=== PATIENT | male | born 1975 | race Caucasian/White ===

== ENCOUNTER 2019-08-11 15:56 | Outpatient (CLI) | payer OTHER, SELFPAY ==
--- NOTE | 2019-08-11 | XR_ITS ---
WS: [id number] ABDOMEN SERIES Supine and upright views of the abdomen CLINICAL INFORMATION: ABDOMINAL BLOATING COMPARISON: None. FINDINGS: No free air on the upright view. Scattered stool in the colon. No bowel distention. No evidence of h igh-grade obstruction. A few air-fluid levels in colon on the upright view. No significant bowel dist ention. XR/XR abdomen min 2V [id number] IMPRESSION: Normal abdomen
== END 2019-08-11 15:57 | disposition home or self-care (01) ==
PROVIDERS: Family Provider Family Medicine; Visit Provider Family Medicine
DX: Z76.89 Persons encountering health services in other specified circumstances (principal)

== ENCOUNTER 2021-04-15 18:47 | Emergency (ER) | payer OTHER, SELFPAY ==
[2021-04-15 18:50] VITALS: BP 145/89; PULSE 78; RESP 18; TEMP 36.5; O2SAT 99; BMI 30.7
--- NOTE | 2021-04-15 19:05 | ED_ITS ---
HPI - Chest Pain General: Chief Complaint: Chest Pain Stated Complaint: cp Time Seen by Provider: 04/15/21 19:05 History of Present Illness: HPI narrative: Mr. Gardner is a 46-year-old gentleman without significant past medical history presents emergency department due to chest pain. He reports that symptoms started approximately 1 day ago and initially had upper respiratory infection symptoms with congestion, mild sore throat, and generalized malaise. No fevers, chills, or other focal source of infection. Today, about 1 hour prior to arrival he had tightness across his chest and felt lightheaded. Tightness did not significantly radiate. No worsening shortness of breath. Intensity of symptoms is moderate and has now improved. Lightheadedness was severe to the point that he had syncope though denies head strike as he kind of caught himself going down. No witnessed seizure-like activity. He denies frequent history of chest pain. He has a positive family history for early cardiac on his father side and grandfather in their 40s. Additionally he is a smoker though plans to quit. No other known specific exacerbating relieving factors identified. Review of Systems General: Reports: 10 or more systems reviewed and unremarkable except in HPI and below Physical Exam Narrative: EXAM NARRATIVE: GENERAL/CONSTITUTIONAL -mildly ill. No acute distress. Eyes - PERRL, no conjunctival injection ENMT - Atraumatic external nose and ears. Moist mucous membranes NECK - supple. trachea midline CARDIOVASCULAR - regular rate and rhythm. CHEST - some component reproducible with palpation. RESPIRATORY -clear to auscultation bilaterally. No retractions or accessory muscle use. ABDOMEN/GI - Nontender/Nondistended. MSK - Extremities without obvious deformity or tenderness to palpation SKIN - Warm, Dry NEURO - alert and appropriately oriented. Moves all extremities equally. Course ED course: - Patient was seen and evaluated by me at bedside - Patient placed on cardiac monitors, IV access obtained - Initial evaluation notable for exam as noted above. No acute distress. Nontoxic. -Symptom treatment ordered - Labs notable for no leukocytosis, macrocytic anemia which is worsening pruritus, mild thrombocytopenia. No significant metabolic abnormalities to explain patient's symptoms. Procalcitonin negative. - Imaging notable for no lobar consolidation. Given description of symptoms including dizziness imaging felt to be appropriate and CT head was negative. - Upon serial reexamination after treatment the patient was improved - Based on patient history, evaluation, labs, and imaging as interpreted the most likely cause of the patient's condition is unclear, likely viral in nature. Given patient's family history and smoking history he does warrant further outpatient evaluation and I discussed with this. Low heart score. Case management order for outpatient stress test and echo. - The results of ED evaluation were discussed with the patient including prescriptions and/or symptomatic cares (if applicable) including appropriate and responsible use, followup plan, and return precautions. The patient verbalized understanding and felt safe for discharge. - Patient discharged in satisfactory condition. Vital Signs: Vital signs: Vital Signs Temperature 97.7 F 04/15/21 18:50 Pulse Rate 70 04/15/21 22:29 Respiratory Rate 23 H 04/15/21 22:29 Blood Pressure 144/85 04/15/21 22:29 Pulse Oximetry 97 04/15/21 22:29 MDM - Chest Pain Medical Records: Attestation: I reviewed the patient's medical records. Lab Data: Attestation: I reviewed the patient's lab results. Labs: Lab Results 04/15/21 04/15/21 04/15/21 19:51 19:51 19:51 WBC Cancelled Corrected WBC Cancelled RBC Cancelled Hgb Cancelled Hct Cancelled MCV Cancelled MCH Cancelled MCHC Cancelled RDW Cancelled Plt Count Cancelled MPV Cancelled Gran % Cancelled Neut % (Auto) Cancelled Lymph % (Auto) Cancelled [place] % (Auto) Cancelled Eos % (Auto) Cancelled Baso % (Auto) Cancelled Neut # (Auto) Cancelled Lymph # (Auto) Cancelled [place] # (Auto) Cancelled Eos # (Auto) Cancelled Baso # (Auto) Cancelled Absolute Gran (aut o) Cancelled Nucleated RBC % (a uto) Cancelled Nucleated RBCs # Cancelled Sodium 137 mmol/L mmol/L (136-145) Potassium 3.6 mmol/L mmol/L (3.5-5.1) Chloride 103 mmol/L mmol/L (98-107) Carbon Dioxide 22 mmol/L mmol/L (22-29) Anion Gap 15.6 (5-19) BUN 6 mg/dL mg/dL (6-20) Creatinine 0.7 mg/dL mg/dL (0.7-1.2) GFR Calculation 122.5 mL/min mL/m in (90-130) Glucose 88 mg/dL mg/dL (65-115) Calculated Osmolal ity 281 mOsm/kg L mOs m/kg (285-295) Calcium 9.1 mg/dL mg/dL (8.5-10.5) Total Bilirubin 0.4 mg/dL mg/dL (0.15-1.2) AST 25 U/L U/L (0-40) ALT 49 U/L H U/L (0-41) Alkaline Phosphata se 129 IU/L IU/L (40-130) Troponin T Baselin e 6 ng/L ng/L (0-15) Troponin T 120 Min bambi Delta Troponin T C-Reactive Protein 10.8 mg/L H mg/L (0.0-4.9) Total Protein 7.4 g/dL g/dL (6.6-8.7) Albumin 4.4 g/dL g/dL (3.5-5.2) Globulin 3.0 g/dL g/dL (1.3-4.6) Procalcitonin 0.14 ng/mL ng/mL (0-0.5) 04/15/21 04/15/21 19:58 21:09 WBC 9.5 10^3/uL 10^3/ uL (4.0-10.0) Corrected WBC RBC 3.50 10^6/uL L 10 ^6/uL (4.1-5.3) Hgb 11.3 g/dL L g/dL (11.7-16.6) Hct 33.9 % L % (42.0-52.0) MCV 96.9 fl H fl (80-94) MCH 32.3 pg pg (28.0-34.0) MCHC 33.3 g/dL g/dL (30.0-36.0) RDW 13.1 % % (12.1-15.1) Plt Count 127 10^3/cmm L 10 ^3/cmm (130-400) MPV 11.2 fL H fL (7.4-10.4) Gran % Neut % (Auto) 68.5 % % Lymph % (Auto) 16.7 % % [place] % (Auto) 11.2 % % Eos % (Auto) 2.5 % % Baso % (Auto) 0.6 % % Neut # (Auto) 6.47 10^3/uL 10^3 /uL (1.8-7.7) Lymph # (Auto) 1.6 10^3/uL 10^3/ uL (0.8-4.8) [place] # (Auto) 1.1 10^3/uL H 10^ 3/uL (0.2-0.9) Eos # (Auto) 0.2 10^3/uL 10^3/ uL (0.0-0.8) Baso # (Auto) 0.1 10^3/uL 10^3/ uL (0.0-0.1) Absolute Gran (aut o) Nucleated RBC % (a uto) 0 % % Nucleated RBCs # 0.0 /100WBC /100W BC Sodium Potassium Chloride Carbon Dioxide Anion Gap BUN Creatinine GFR Calculation Glucose Calculated Osmolal ity Calcium Total Bilirubin AST ALT Alkaline Phosphata se Troponin T Baselin e Troponin T 120 Min bambi 6.00 ng/L ng/L (0-15) Delta Troponin T 0 ABS# ABS# (0-10) C-Reactive Protein Total Protein Albumin Globulin Procalcitonin EKG Data^: EKG 1: Attestation: I personally reviewed and interpreted this EKG as follows: EKG interpretation date: 04/15/21 EKG interpretation time: 19:59 Interpretation: Twelve-lead EKG shows a regular rhythm at a rate of 72. MO interval 160, QRS duration 110, QTc 380. Normal axis. Interpretation: Sinus rhythm. Nonspecific ST segment abnormalities EKG 2: Attestation: I personally reviewed and interpreted this EKG as follows: EKG interpretation date: 04/15/21 EKG interpretation time: 19:01 Interpretation: Twelve-lead EKG shows a regular rhythm at a rate of 72. MO interval 173, QRS duration 97, QTc 385. Normal axis. Interpretation: Sinus rhythm Discharge Plan Discharge Patient Disposition: Home Clinical Impression: Chest pain, URI (upper respiratory infection), Syncope Condition: Stable Prescriptions: New ondansetron 4 mg tablet,disintegrating 4 mg PO Q8H 5 Days Qty: 15 RF: 0 Discharge Orders: Discharge ED (Routine); Ordered 04/15/21 Ordered By: Reyes Sosa Referrals: Sathish Gerardo MD [Primary Care Provider] - Discharge Diet: Usual diet Discharge Activity: Resume usual activity Patient Instructions: Chest Pain (ED), Syncope (ED), Upper Respiratory Infection (ED) Activity Restrictions/Additional Instructions: Thank you for visiting the emergency department. You were seen and evaluated for chest pain as well as syncope and URI type symptoms. The exact cause of your symptoms is unclear. URI is likely viral in nature given duration. As discussed you are low risk for chest pain however given your family history outpatient follow-up and testing is needed. Please follow-up with your primary care provider. Please return to the emergency department for worsening symptoms or anything else that you are concerned about and feel needs emergency department evaluation. Coding Level of Care Code ED Emergency Planning And Response Manager for Dion Manriquez
--- NOTE | 2021-04-15 19:18 | XRR_ITS ---
PROCEDURE INFORMATION: Exam: XR Chest Exam date and time: 04/15/2021 7:18 PM Age: 45 years old Clinical indication: Dyspnea; Additional info: SOB TECHNIQUE: Imaging protocol: XR of the chest. Views: 1 view. COMPARISON: CR XR abdomen min 2V [id number] 08/11/2019 3:56 PM FINDINGS: Lungs: There is calcified granuloma at the right lung base. There is no acute infiltrate. Pleural spaces: Unremarkable. No pleural effusion. No pneumothorax. Heart/Mediastinum: Heart is within normal limits of size. Bones/joints: Unremarkable. XR/XR chest 1V portable [id number] IMPRESSION: No acute infiltrate. Radiation Dose CTDIVOL = (mGy): DLP = (mGy-cm)
--- NOTE | 2021-04-15 19:18 | ECG_ITS ---
[facility] Test Date: 2021-04-15 Pat Name: Chele Gardner Department: Room: Gender: Male [place] Cr[employer] Operator: : 1975 Requested By: Reyes Sosa Order Number: [id number] John MD: DANIEL TAYLOR Measurements Intervals [place] Rate: 72 P: 64 MS: 173 QRS: 33 QRSD: 97 T: 56 QT: 352 QTc: 385 Interpretive Statements SINUS RHYTHM No previous ECG available for comparison Electronically Signed On 04-17-2021 0:11:19 CDT by DANIEL TAYLOR [id number]
--- NOTE | 2021-04-15 19:56 | CTR_ITS ---
PROCEDURE INFORMATION: Exam: CT Head Without Contrast Exam date and time: 04/15/2021 7:56 PM Age: 45 years old Clinical indication: Syncope and collapse; Patient HX: Syncope v seizure; Additional info: Seizure like episode TECHNIQUE: Imaging protocol: Computed tomography of the head without contrast. Radiation optimization: All CT scans at this facility use at least one of these dose optimization techniques: automated exposure control; mA and/or kV adjustment per patient size (includes targeted exams where dose is matched to clinical indication); or iterative reconstruction. COMPARISON: [facility] Cervical Spine 5 views 08/13/2018 3:52 PM RADIATION DOSE METRICS: Total DLP (mGy-cm): 977.6 FINDINGS: Brain: Normal. No hemorrhage. Unremarkable white matter. No mass effect. Cerebral ventricles: No ventriculomegaly. Paranasal sinuses: There is partial opacification of ethmoid air cells on both sides. There is mucosal thickening in the right maxillary antrum. Mastoid air cells: Visualized mastoid air cells are well aerated. Bones/joints: There is what appears to be old healed medial wall blowout fracture on the right. Soft tissues: Unremarkable. CT/CT head wo con* [id number] IMPRESSION: 1. No acute finding 2. Right maxillary and bilateral ethmoid sinus disease. 3. Old right medial wall orbital blowout fracture Radiation Dose CTDIVOL = (mGy): DLP = 977.6 (mGy-cm)
[2021-04-15] MEDS: sodium chloride 0.9% 1,000 ML 999 ML IV (20:03)
[2021-04-15 20:05] LABS: Basophils # 0.1 10^3/uL (0.0-0.1); Basophils % 0.6 %; Eosinophils # 0.2 10^3/uL (0.0-0.8); Eosinophils % 2.5 %; Hematocrit 33.9 % (42.0-52.0); Hemoglobin 11.3 g/dL (11.7-16.6); Lymphocytes # 1.6 10^3/uL (0.8-4.8); Lymphocytes % 16.7 %; Mean Corpuscular HGB Conc 33.3 g/dL (30.0-36.0); Mean Corpuscular Hemoglobin 32.3 pg (28.0-34.0); Mean Corpuscular Volume 96.9 fl (80-94); Mean Platelet Volume 11.2 fL (7.4-10.4); Monocytes # 1.1 10^3/uL (0.2-0.9); Monocytes % 11.2 %; Neutrophils # 6.47 10^3/uL (1.8-7.7); Neutrophils % 68.5 %; Nucleated Red Blood Cells % 0 %; Platelet Count 127 10^3/cmm (130-400); Red Cell Distribution Width 13.1 % (12.1-15.1); White Blood Count 9.5 10^3/uL (4.0-10.0)
[2021-04-15 20:13] LABS: Alanine Aminotransferase 49 U/L (0-41); Albumin Level 4.4 g/dL (3.5-5.2); Alkaline Phosphatase 129 IU/L (40-130); Anion Gap 15.6 (5-19); Aspartate Amino Transferase 25 U/L (0-40); Blood Urea Nitrogen 6 mg/dL (6-20); C Reactive Protein 10.8 mg/L (0.0-4.9); Calcium 9.1 mg/dL (8.5-10.5); Carbon Dioxide 22 mmol/L (22-29); Chloride 103 mmol/L (98-107); Glomerular Filtration Rate 122.5 mL/min (90-130); Glucose 88 mg/dL (65-115); Osmolality Calculated 281 mOsm/kg (285-295); Potassium 3.6 mmol/L (3.5-5.1); Sodium 137 mmol/L (136-145); Total Bilirubin 0.4 mg/dL (0.15-1.2); Total Protein 7.4 g/dL (6.6-8.7); Troponin(5th) Baseline 6 ng/L (0-15)
[2021-04-15 20:20] LABS: Procalcitonin 0.14 ng/mL (0-0.5)
[2021-04-15 20:35] VITALS: BP 119/82; BP 121/85; BP 128/79; PULSE 69; PULSE 70; PULSE 71
--- NOTE | 2021-04-15 21:18 | ECG_ITS ---
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
[2021-04-15 21:37] LABS: Troponin 5 2HR Delta 0 ABS# (0-10)
[2021-04-15 22:29] VITALS: BP 144/85; PULSE 70; RESP 23; O2SAT 97
--- NOTE | 2021-04-18 14:31 | DCPLANNER ---
social media marketing manager had message to schedule a follow up appointment for patient with [facility], and an outpatient stress test and echocardiogram. social media marketing manager called [facility], spoke with Liya, gave clinic patients information. A follow up appointment was scheduled for Thursday, May 03 at 2:[address] Flores. social media marketing manager called patient to give him the appointment information. social media marketing manager spoke with patient and he stated that he did not want the follow up appointment and he did not want the out patients tests scheduled at this time. Patient stated that he was going to follow up with his primary care physician. social media marketing manager called [facility], spoke with Liya, cancelled the appointment due to patient not wanting the appointment at this time.
== END 2021-04-15 22:31 | disposition home or self-care (01) ==
PROVIDERS: Emergency Provider Emergency Medicine; PCP Family Medicine
DX: R07.9 Chest pain, unspecified (principal); J06.9 Acute upper respiratory infection, unspecified; R55 Syncope and collapse
CPT/HCPCS: 70450; 71045; 80053; 84145; 84484; 85025; 86140; 93005; 96360; 99283; J7030

== ENCOUNTER 2021-09-08 14:56 | Emergency (ER) | payer OTHER, SELFPAY ==
[2021-09-08] VITALS (7 sets, daily range): BP systolic 123–145; BP diastolic 78–104; PULSE 79–97; RESP 14–20; TEMP 36.8; O2SAT 93–100; BMI 32.1
--- NOTE | 2021-09-08 15:09 | CTR_ITS ---
PROCEDURE INFORMATION: Exam: CT Abdomen And Pelvis With Contrast Exam date and time: 09/08/2021 4:11 PM Age: 46 years old Clinical indication: Abdominal pain; Generalized; Prior surgery; Surgery type: Bowel; Additional info: Eval for bowel obstruction TECHNIQUE: Imaging protocol: Computed tomography of the abdomen and pelvis with contrast. Radiation optimization: All CT scans at this facility use at least one of these dose optimization techniques: automated exposure control; mA and/or kV adjustment per patient size (includes targeted exams where dose is matched to clinical indication); or iterative reconstruction. Contrast material: OMNI 300; Contrast volume: 95 ml; Contrast route: INTRAVENOUS (IV); COMPARISON: CT abdomen pelvis w con* [id number] 03/07/2018 12:03 AM RADIATION DOSE METRICS: Total DLP (mGy-cm): 1773.92 FINDINGS: Lungs: A calcified granuloma is present in the right lung base. Heart: The heart is normal in size. Diaphragm: A small hiatal hernia is present. Liver: Normal. No mass. Gallbladder and bile ducts: Normal. No calcified stones. No ductal dilation. Pancreas: Normal. No ductal dilation. Spleen: Normal. No splenomegaly. Adrenal glands: Normal. No mass. Kidneys and ureters: Subcentimeter round hypodense lesions in the left kidney are too small to accurately characterize but are likely small cyst. The kidneys appear normal. No hydronephrosis. Stomach and bowel: Multiple loops of small bowel are mildly dilated with fluid. No intestinal obstruction. Fluid and a small amount of air are present in the colon. Appendix: The appendix has been resected. Intraperitoneal space: Unremarkable. No free air. No significant fluid collection. Vasculature: Unremarkable. No abdominal aortic aneurysm. Lymph nodes: Unremarkable. No enlarged lymph nodes. Urinary bladder: Unremarkable as visualized. Reproductive: Unremarkable as visualized. Bones/joints: Unremarkable. No acute fracture. Soft tissues: Unremarkable. CT/CT abdomen pelvis w con* [id number] IMPRESSION: 1. Possible mild enteritis. No intestinal obstruction 2. Small hiatal hernia. COMMENTS: Consistent with the [employer] [employer]'s Incidental Findings Committee white paper (J Am Kristin Radiol 2018): Any incidental renal lesion less than 1 cm or classified as too small to characterize, or any incidental cystic renal lesion characterized as simple-appearing, is likely benign. No follow-up imaging is recommended for these lesions per consensus recommendations based on imaging criteria.
--- NOTE | 2021-09-08 15:33 | ED_ITS ---
HPI - General Adult General: Chief complaint: General Medical Stated complaint: suspected bowel blockage Time Seen by Provider: 09/08/21 15:09 History of Present Illness: Patient is a 46-year-old male with a history of prior ex lap for lysis of adhesion, small bowel obstruction presenting to the emergency room with generalized abdominal pain abdominal distention and vomiting since 6 AM this morning. Patient says that he has had watery stool since 6 AM. Patient reports intermittent abdominal pain similar to prior presentation of 12 obstruction. Patient denies any fever or chills has had decreased appetite. Patient says that the pain is intermittent lasting for 10 minutes at a time every hour since exam. Patient denies any melena/hematochezia, history of renal colic, or any other prior abdominal surgery. No other focal complaints: Chest pain, shortness of palpitation, cough, runny nose, sore throat, urinary complaints at this time. Onset:6am Duration:9 hrs Location:home Severity:moderate Associated symptoms: Reports nausea and vomiting; Deny chest pain, dyspnea, rash or palpitations Review of Systems Const: Denies: fever(s) or chills Eyes: Denies: change in vision ENMT: Denies: mouth pain Card: Denies: chest pain or palpitations Resp: Denies: dyspnea or non-productive cough GI: Reports: abdominal pain, nausea, vomiting and diarrhea : Denies: dysuria Musc: Denies: extremity pain Skin/Breast: Denies: rash or new lesions Neuro: Denies: weakness in extremities Psych: Reports: other (Normal mood) Heraclio/Lymph: Denies: easy bruising PFS ED PFSH: Medical History (Updated 09/08/21 @ 17:12 by Atiya Zarate MD) Exploratory laparotomy scar Small bowel obstruction Social History (Updated 09/08/21 @ 15:35 by Atiya Zarate MD) Smoking and tobacco status: never smoked Alcohol intake: never Substance/Drug Use: never Physical Exam Const: COMMON NORMALS: alert HENMT: COMMON NORMALS: atraumatic HEAD & SCALP: atraumatic MOUTH: moist mucous membranes not abnormal Eye: COMMON NORMALS: EOMs intact bilaterally and conjunctivae normal CONJUNCTIVA: Yes conjunctivae normal Neck/C-Spine: COMMON NORMALS: full ROM and supple Resp: COMMON NORMALS: normal respiratory effort and clear to auscultation bilaterally AUSCULTATION: clear to auscultation bilaterally Cardio: COMMON NORMALS: regular rate RATE: regular rate GI: COMMON NORMALS: Soft to palpation PALPATION: Yes Soft to palpation OTHER: +abdominal distension, +mild diffuse TTP worse in the LLQ. NO guarding rebound, guarding, rigidity. No CVA tenderness to percussion. Neg Wilkes/Neg McBurney's p oint tenderness, no suprabupic tenderness to palpation. Extremity: COMMON NORMALS: full ROM Neuro: SENSORIUM/ORIENTATION: Yes alert MOTOR EXAM: No Abnormal motor strength present and Other motor observations present (no focal motor deficits) Psych: COMMON NORMALS: speech normal SPEECH: Yes normal speech MOOD & AFFECT: Yes euthymic mood Course Vital Signs: Vital signs: Vital Signs Temperature 98.3 F 09/08/21 15:03 Pulse Rate 86 09/08/21 17:11 Respiratory Rate 14 09/08/21 17:11 Blood Pressure 145/104 09/08/21 17:11 Pulse Oximetry 96 09/08/21 17:11 [facility] - General Adult Medical Decision Making 46-year-old male with a history of prior small bowel obstruction presenting to the emergency room with complaints of diffuse abdominal pain worse in the lower quadrant. On exam, patient has no guarding or rebound tenderness. Patient is afebrile. Patient is noted to have white count 14 point 5K. Rest of lab within normal limit. CT abdomen showed enteritis. Patient tolerated p.o. without any difficulty, 2L of IVF, and a GI cocktail No suspicion for other acute intra-abdominal pathology including SBO, biliary pathology, appendicitis, diverticulitis, or other emergent condition requiring surgery. Rx tylenol PRN abd pain, maalox/pepcid PRN dyspepsia, and zofran PRN nausea/vomiting Disposition: Discharge. Patient counseled regarding diagnostic impression, treatment plan. Patient given ED strict return precautions to return for continuation, worsening, or development of new symptoms. Instructed to f/u w/ PCP regarding symptoms today. Patient verbalized understanding. Lab Data : 09/08/21 15:30 09/08/21 15:30 Radiology Impressions Abdomen/Pelvis CT 09/08/21 15:09 IMPRESSION: 1. Possible mild enteritis. No intestinal obstruction 2. Small hiatal hernia. COMMENTS: Consistent with the [employer]'s Incidental Findings Committee white paper (J Am Kristin Radiol 2018): Any incidental renal lesion less than 1 cm or classified as too small to characterize, or any incidental cystic renal lesion characterized as simple-appearing, is likely benign. No follow-up imaging is recommended for these lesions per consensus recommendations based on imaging criteria. Laboratory Results WBC 14.5 10^3/uL (4.0-10.0) H 09/08/21 15:30 RBC 5.91 10^6/uL (4.1-5.3) H 09/08/21 15:30 Hgb 18.7 g/dL (11.7-16.6) H 09/08/21 15:30 Hct 54.6 % (42.0-52.0) H 09/08/21 15: MCV 92.4 fl (80-94) 09/08/21 15: MCH 31.6 pg (28.0-34.0) 09/08/21 15: MCHC 34.2 g/dL (30.0-36.0) 09/08/21 15: RDW 13.2 % (12.1-15.1) 09/08/21 15:30 Plt Count 230 10^3/cmm (130-400) 09/08/21 15: MPV 11.3 fL (7.4-10.4) H 09/08/21 15:30 Neut % (Auto) 84.2 % 09/08/21 15:30 Lymph % (Auto) 7.6 % 09/08/21 15:30 Hall % (Auto) 5.9 % 09/08/21 15:30 Eos % (Auto) 1.2 % 09/08/21 15:30 Baso % (Auto) 0.6 % 09/08/21 15:30 Neut # (Auto) 12.23 10^3/uL (1.8-7.7) H 09/08/21 15:30 Lymph # (Auto) 1.1 10^3/uL (0.8-4.8) 09/08/21 15:30 Hall # (Auto) 0.9 10^3/uL (0.2-0.9) 09/08/21 15:30 Eos # (Auto) 0.2 10^3/uL (0.0-0.8) 09/08/21 15:30 Baso # (Auto) 0.1 10^3/uL (0.0-0.1) 09/08/21 15:30 Nucleated RBC % (auto) 0 % 09/08/21 15: Nucleated RBCs # 0.0 /100WBC 09/08/21 15:30 Sodium 140 mmol/L (136-145) 09/08/21 15:30 Potassium 4.2 mmol/L (3.5-5.1) 09/08/21 15:30 Chloride 101 mmol/L (98-107) 09/08/21 15:30 Carbon Dioxide 25 mmol/L (22-29) 09/08/21 15:30 Anion Gap 18.2 (5-19) 09/08/21 15:30 BUN 13 mg/dL (6-20) 09/08/21 15:30 Creatinine 1.1 mg/dL (0.7-1.2) 09/08/21 15:30 GFR Calculation 72.4 mL/min (90-130) L 09/08/21 15:30 Glucose 118 mg/dL (65-115) H 09/08/21 15:30 Calculated Osmolality 291 mOsm/kg (285-295) 09/08/21 15:30 Calcium 10.2 mg/dL (8.5-10.5) 09/08/21 15:30 Total Bilirubin 0.9 mg/dL (0.15-1.2) 09/08/21 15:30 AST 32 U/L (0-40) 09/08/21 15:30 ALT 63 U/L (0-41) H 09/08/21 15:30 Alkaline Phosphatase 151 IU/L (40-130) H 09/08/21 15:30 Total Protein 8.5 g/dL (6.6-8.7) 09/08/21 15:30 Albumin 5.2 g/dL (3.5-5.2) 09/08/21 15:30 Globulin 3.3 g/dL (1.3-4.6) 09/08/21 15:30 Lipase 30 U/L (13-60) 09/08/21 15:30 Imaging Data Other Imaging: Radiologist's impression: [address] [place] [address] CT Scan Report Signed Patient: Chele Gardner Unit #: [id number] : 1975 Age/Sex: 46 / M ADM Date: 09/08/21 Loc: ER Room/Bed: Attending Dr: Ordering Provider/Ordering MD: Atiya Zarate MD Date of Service: 09/08/21 Procedure(s): CT abdomen pelvis w con* [id number] Accession Number(s): [id number] Report Number: [id number] PROCEDURE INFORMATION: Exam: CT Abdomen And Pelvis With Contrast Exam date and time: 09/08/2021 4:11 PM Age: 46 years old Clinical indication: Abdominal pain; Generalized; Prior surgery; Surgery type: Bowel; Additional info: Eval for bowel obstruction TECHNIQUE: Imaging protocol: Computed tomography of the abdomen and pelvis with contrast. Radiation optimization: All CT scans at this facility use at least one of these dose optimization techniques: automated exposure control; mA and/or kV adjustment per patient size (includes targeted exams where dose is matched to clinical indication); or iterative reconstruction. Contrast material: OMNI 300; Contrast volume: 95 ml; Contrast route: INTRAVENOUS (IV);? COMPARISON: CT abdomen pelvis w con* [id number] 03/07/2018 12:03 AM RADIATION DOSE METRICS: Total DLP (mGy-cm): 1773.92 FINDINGS: Lungs: A calcified granuloma is present in the right lung base. Heart: The heart is normal in size. Diaphragm: A small hiatal hernia is present. Liver: Normal. No mass. Gallbladder and bile ducts: Normal. No calcified stones. No ductal dilation. Pancreas: Normal. No ductal dilation. Spleen: Normal. No splenomegaly. Adrenal glands: Normal. No mass. Kidneys and ureters: Subcentimeter round hypodense lesions in the left kidney are too small to accurately characterize but are likely small cyst. The kidneys appear normal. No hydronephrosis. Stomach and bowel: Multiple loops of small bowel are mildly dilated with fluid. No intestinal obstruction. Fluid and a small amount of air are present in the colon. Appendix: The appendix has been resected. Intraperitoneal space: Unremarkable. No free air. No significant fluid collection. Vasculature: Unremarkable. No abdominal aortic aneurysm. Lymph nodes: Unremarkable. No enlarged lymph nodes. Urinary bladder: Unremarkable as visualized. Reproductive: Unremarkable as visualized. Bones/joints: Unremarkable. No acute fracture. Soft tissues: Unremarkable. CT/CT abdomen pelvis w con* [id number] IMPRESSION: 1. Possible mild enteritis.? No intestinal obstruction 2. Small hiatal hernia. ? COMMENTS: Consistent with the [employer]'s Incidental Findings Committee white paper (J Am Kristin Radiol 2018): Any incidental renal lesion less than 1 cm or classified as too small to characterize, or any incidental cystic renal lesion characterized as simple-appearing, is likely benign. No follow-up imaging is recommended for these lesions per consensus recommendations based on imaging criteria. ? Dictated By: Star Fam MD Signed By: Star Fam MD Signed Date/Time: 09/08/21 1705 DD/ 1611 Discharge Plan Discharge Patient Disposition: Home Clinical Impression: Abdominal pain, Abdominal distension, Enteritis Condition: Stable Prescriptions: New acetaminophen 500 mg tablet 500 mg PO Q6H PRN (Reason: pain) 5 Days Qty: 20 0RF Maalox Advanced 1,000-60 mg tablet,chewable 1 tab PO TID PRN (Reason: abdominal pain) 7 Days Qty: 21 0RF Pepcid 20 mg tablet 20 mg PO BID PRN (Reason: abdominal pain) 10 Days Qty: 20 0RF Zofran 4 mg tablet 4 mg PO TID PRN (Reason: nausea and vomiting) 4 Days Qty: 12 0RF No Action Zyrtec-D 5-120 mg tablet extended release 12 hr 1 tab PO DAILY 0RF Dexilant 60 mg capsule,biphase delayed releas 60 mg PO DAILY 0RF Discharge Orders: Discharge ED (Routine); Ordered 09/08/21 Ordered By: Atiya Zarate Referrals: Sathish Gerardo MD [Primary Care Provider] - Discharge Diet: Advance as tolerated Discharge Activity: Increase activity as tolerated Patient Instructions: Abdominal Pain (ED), Enteritis (ED) Activity Restrictions/Additional Instructions: Please come back if you have any worsening abdominal pain, fever or chills, nausea or vomiting, diarrhea, blood in the stool, inability hold down liquid or solids, or any new concerning complaints. Follow-up with your primary care provider next few days for reassessment. Take medication as instructed for pain. Coding Level of Care Code ED Train Braker for Chg Fwd Exam Comprehensive
[2021-09-08 15:39] LABS: Basophils # 0.1 10^3/uL (0.0-0.1); Basophils % 0.6 %; Eosinophils # 0.2 10^3/uL (0.0-0.8); Eosinophils % 1.2 %; Hematocrit 54.6 % (42.0-52.0); Hemoglobin 18.7 g/dL (11.7-16.6); Lymphocytes # 1.1 10^3/uL (0.8-4.8); Lymphocytes % 7.6 %; Mean Corpuscular HGB Conc 34.2 g/dL (30.0-36.0); Mean Corpuscular Hemoglobin 31.6 pg (28.0-34.0); Mean Corpuscular Volume 92.4 fl (80-94); Mean Platelet Volume 11.3 fL (7.4-10.4); Monocytes # 0.9 10^3/uL (0.2-0.9); Monocytes % 5.9 %; Neutrophils # 12.23 10^3/uL (1.8-7.7); Neutrophils % 84.2 %; Nucleated Red Blood Cells % 0 %; Platelet Count 230 10^3/cmm (130-400); Red Blood Count 5.91 10^6/uL (4.1-5.3); Red Cell Distribution Width 13.2 % (12.1-15.1); White Blood Count 14.5 10^3/uL (4.0-10.0)
[2021-09-08 16:00] LABS: Alanine Aminotransferase 63 U/L (0-41); Albumin Level 5.2 g/dL (3.5-5.2); Alkaline Phosphatase 151 IU/L (40-130); Anion Gap 18.2 (5-19); Aspartate Amino Transferase 32 U/L (0-40); Blood Urea Nitrogen 13 mg/dL (6-20); Calcium 10.2 mg/dL (8.5-10.5); Carbon Dioxide 25 mmol/L (22-29); Chloride 101 mmol/L (98-107); Globulin 3.3 g/dL (1.3-4.6); Glomerular Filtration Rate 72.4 mL/min (90-130); Glucose 118 mg/dL (65-115); Lipase 30 U/L (13-60); Osmolality Calculated 291 mOsm/kg (285-295); Potassium 4.2 mmol/L (3.5-5.1); Sodium 140 mmol/L (136-145); Total Bilirubin 0.9 mg/dL (0.15-1.2); Total Protein 8.5 g/dL (6.6-8.7)
[2021-09-08] MEDS: morphine 4 mg/mL SDV 1 mL 2 MG IVP (16:04)
[2021-09-08] MEDS: sodium chloride 0.9% 1,000 ML 999 ML IV ×2 (16:08→16:41)
[2021-09-08] MEDS: iohexol 300 mg/mL 100 mL Btl IV (16:09)
--- NOTE | 2021-09-08 16:16 | PC.NURSE ---
Patient reports generalized pain in his abdomen that has started a few days ago. patient reports that this has happened before when he had a bowel obstruction. He states he had a bowel movement today. Patient reports it was loose. Patient began vomiting today. patient denies any other medical history. Patient alert and oriented.
--- NOTE | 2021-09-08 16:44 | PC.NURSE ---
Patient in bed, denies any needs at this time. Patient family at bedside, call light within reach.
[2021-09-08] MEDS: lidocaine 2% viscous 15 ML, aluminum-mag hydrox-simethicon 30 ML, sucralfate oral liq 1 GM PO (17:21)
--- NOTE | 2021-09-08 17:29 | PC.NURSE ---
Patient in bed, patient tolerated GI cocktail, denies any nausea. patient sipping water at this time, tolerating at this time. 2nd bag of fluids infusing at this time.
== END 2021-09-08 19:05 | disposition home or self-care (01) ==
PROVIDERS: Emergency Provider Emergency Medicine; PCP Family Medicine
DX: K52.9 Noninfective gastroenteritis and colitis, unspecified (principal)
CPT/HCPCS: 74177; 80053; 83690; 85025; 96361; 96374; 99284; J2270; J7030; Q9967